=== PATIENT | male | born 1995 | race Caucasian/White ===

== ENCOUNTER 2022-05-11 12:26 | Emergency (ER) | payer MEDICAID ==
[~2022-05-11] VITALS: Ht 165.1 cm; Wt 129.7 kg
[2022-05-11 12:36] VITALS: BP_SYST 162
[2022-05-11 15:52] LABS: BASOPHILS # (AUTO) 0.1 K/uL (0.0-0.2); BASOPHILS % (AUTO) 0.9 % (0.0-2.0); EOSINOPHILS # (AUTO) 0.4 K/uL (0.0-0.4); EOSINOPHILS % (AUTO) 6.1 % (0.0-4.0); HEMATOCRIT 42.9 % (36-54); LYMPHOCYTES # (AUTO) 2.1 K/uL (1.0-5.5); LYMPHOCYTES % (AUTO) 33.3 % (20.5-51.5); MEAN CORPUSCULAR VOLUME 83 fL (79.0-98.0); MONOCYTES # (AUTO) 0.6 K/uL (0.0-1.0); MONOCYTES % (AUTO) 9.1 % (1.7-9.3); NEUTROPHILS # (AUTO) 3.2 K/uL (1.8-7.7); NEUTROPHILS % (AUTO) 50.6 % (40.0-70.0); PLATELET COUNT (AUTO) 266 K/uL (130-430); RED BLOOD CELL COUNT(AUTO) 5.19 MIL/uL (4.2-6.2); RED CELL DISTRIBUTION WIDTH 14.2 % (9.0-15.0); WHITE BLOOD COUNT (AUTO) 6.3 K/uL (4.8-10.8)
[2022-05-11 16:32] LABS: CALCIUM 9.2 mg/dL (8.4-11.0); CREATININE 0.86 mg/dL (0.55-1.30); POTASSIUM 3.9 mmol/L (3.5-5.1)
[2022-05-11 16:38] LABS: ALBUMIN 3.6 g/dL (3.4-4.8); TOTAL BILIRUBIN 0.2 mg/dL (0.0-1.0)
[2022-05-11 17:52] VITALS: BP_SYST 122
[2022-05-11 19:51] LABS: HEMOGLOBIN 14.5 g/dL (14.0-18.0); MEAN CORPUSCULAR HEMOGLOBIN 28 pg (27-31); MEAN CORPUSCULAR HGB CONC 34 % (32-36)
== END 2022-05-11 17:52 | disposition home or self-care (01) ==
LOC: SED 12:26
DX: R10.9 Unspecified abdominal pain (principal); Z79.899 Other long term (current) drug therapy
CPT/HCPCS: 36415; 80053; 83690; 85025; 99283

== ENCOUNTER 2022-05-14 23:15 | Emergency (ER) | payer MEDICAID ==
[~2022-05-14] VITALS: Ht 175.3 cm; Wt 90.7 kg
[2022-05-14 23:21] VITALS: BP_SYST 117
--- NOTE | 2022-05-14 23:26 | NUR ---
PT I AA&OX4. LUX[place]OUR[place] SPEAKING. AFEBRILE.NAD. C/O 10/15 PAIN LEFT CHEST. AMBULATORY W/ STEADY GAIT. SAFE & HAZARD FREE ENVIRONMENT PROVIDED.WILL CON'T TO MONITOR. CAME IN FOR ANXIETY, NO PMH.
[2022-05-14] MEDS ORDERED: ACETAMINOPHEN 325 MG TABLET PO ONE (23:30)
--- NOTE | 2022-05-14 23:35 | NUR ---
ER Dr.D' NUNEZ at bedside examining patient.
[2022-05-15 01:27] VITALS: BP_SYST 120
[2022-05-15] MEDS ORDERED: NAPR-686 PO (01:28)
[2022-05-15] MEDS ORDERED: CYCL10TA24 PO (01:28)
--- NOTE | 2022-05-15 01:35 | NUR ---
Patient given written and verbal discharge instructions and verbalizes understanding. ER MD discussed with patient the results and treatment provided. Patient in stable condition. ID arm band removed. Rx of FLEXERIL& NAPROXEN given. Patient educated on pain management and to follow up with PMD. Pain Scale 0-10. Opportunity for questions provided and answered. Medication side effect fact sheet provided.
== END 2022-05-15 01:35 | disposition home or self-care (01) ==
LOC: SED 23:15
DX: R07.9 Chest pain, unspecified (principal); Z79.899 Other long term (current) drug therapy
CPT/HCPCS: 36415; 71045; 84484; 93005; 99285

== ENCOUNTER 2022-06-26 09:43 | Emergency (ER) | payer MEDICAID ==
[~2022-06-26] VITALS: Ht 167.6 cm; Wt 111.1 kg
[~2022-06-26 09:43] MED LIST: CYCL10TA24 PO; NAPR-686 PO
[2022-06-26 10:00] VITALS: BP_SYST 117
--- NOTE | 2022-06-26 10:00 | NUR ---
Patient triaged and placed in waiting room. VSS and patient appears in no acute distress at this time. Accompanied by self , awaiting available bed, and MD notified of need for MSE.
--- NOTE | 2022-06-26 10:05 | NUR ---
Pt brought by self, A&Ox4, pt presents to ER with cough, congestion and sore throat x 3 days, skin pink and warm, capr refill <3.
--- NOTE | 2022-06-26 10:20 | NUR ---
Dr Johnson evaluating patient at bedside
[2022-06-26] MEDS ORDERED: PHEDM120 PO (11:07)
[2022-06-26] MEDS ORDERED: OSEL75CA PO (11:07)
[2022-06-26] MEDS ORDERED: IBUP-1969 PO (11:07)
--- NOTE | 2022-06-26 11:18 | NUR ---
Patient given written and verbal discharge instructions and verbalizes understanding. ER MD discussed with patient the results and treatment provided. Patient in stable condition. ID arm band removed. Rx of Ibuprofen, Tamiflu and Phenergan given. Patient educated on pain management and to follow up with PMD. Pain Scale 0/10. Opportunity for questions provided and answered. Medication side effect fact sheet provided.
[2022-06-26 11:19] VITALS: BP_SYST 117
== END 2022-06-26 11:18 | disposition home or self-care (01) ==
LOC: SED 09:43
DX: J11.1 Influenza due to unidentified influenza virus with other respiratory manifestations (principal); R50.9 Fever, unspecified; R05.9 Cough, unspecified; R51.9 Headache, unspecified; Z79.899 Other long term (current) drug therapy; Z20.822 Contact with and (suspected) exposure to COVID-19
CPT/HCPCS: 36415; 99283

== ENCOUNTER 2023-01-14 02:34 | Emergency (ER) | payer MEDICAID ==
[~2023-01-14] VITALS: Ht 172.7 cm; Wt 127.0 kg
[~2023-01-14 02:34] MED LIST changes: +IBUP-1969 PO; +OSEL75CA PO; +PHEDM120 PO
[2023-01-14 02:54] VITALS: BP_SYST 134
[2023-01-14] MEDS ORDERED: IBUP-1971 PO (03:13)
[2023-01-14] MEDS ORDERED: CORTEARS LEFT EAR (03:13)
[2023-01-14 03:31] VITALS: BP_SYST 134
== END 2023-01-14 03:31 | disposition home or self-care (01) ==
LOC: SED 02:34
DX: H60.92 Unspecified otitis externa, left ear (principal); H92.02 Otalgia, left ear; Z79.899 Other long term (current) drug therapy
CPT/HCPCS: 99283

== ENCOUNTER 2023-09-17 11:10 | Emergency (ER) | payer MEDICAID ==
[~2023-09-17] VITALS: Ht 177.8 cm; Wt 113.4 kg
[~2023-09-17 11:10] MED LIST changes: +CORTEARS LEFT EAR; +IBUP-1971 PO
[2023-09-17 11:17] VITALS: BP_SYST 123; PULSE 78; RESP 18; TEMP 98; O2SAT 97
[2023-09-17 11:37] LABS: BASOPHILS % (AUTO) 0.5 % (0.0-2.0); EOSINOPHILS # (AUTO) 0.4 K/uL (0.0-0.4); EOSINOPHILS % (AUTO) 7.5 % (0.0-4.0); HEMATOCRIT 41.8 % (36-54); HEMOGLOBIN 14.2 g/dL (14.0-18.0); LYMPHOCYTES # (AUTO) 1.5 K/uL (1.0-5.5); LYMPHOCYTES % (AUTO) 29.9 % (20.5-51.5); MEAN CORPUSCULAR HEMOGLOBIN 29 pg (27-31); MEAN CORPUSCULAR HGB CONC 34 % (32-36); MEAN CORPUSCULAR VOLUME 84 fL (79.0-98.0); MONOCYTES # (AUTO) 0.5 K/uL (0.0-1.0); MONOCYTES % (AUTO) 10.1 % (1.7-9.3); NEUTROPHILS # (AUTO) 2.6 K/uL (1.8-7.7); PLATELET COUNT (AUTO) 267 K/uL (130-430); RED BLOOD CELL COUNT(AUTO) 4.97 MIL/uL (4.2-6.2); RED CELL DISTRIBUTION WIDTH 13.6 % (9.0-15.0)
[2023-09-17] MEDS: METOCLOPRAMIDE HCL 10 MG/2 ML VIAL IVP ONE (12:13)
[2023-09-17] MEDS: MECLIZINE HCL 25 MG TABLET (ANITVERT) PO ONE (12:13)
[2023-09-17 12:16] LABS: ANION GAP 9 (5-15); CALCIUM 8.7 mg/dL (8.4-11.0); CARBON DIOXIDE 29 mmol/L (23-29); CHLORIDE 105 mmol/L (98-107); CREATININE 0.74 mg/dL (0.55-1.30); GFR AFRICAN AMERICAN 161 mL/min (>90); GLUCOSE 112 mg/dL (74-106); POTASSIUM 3.8 mmol/L (3.5-5.1); SODIUM SERUM 143 mmol/L (136-145); UREA NITROGEN, BLOOD 13 mg/dL (8-21)
[2023-09-17 12:24] LABS: ALANINE AMINOTRANSFERASE 44 U/L (12-78); ALBUMIN 3.4 g/dL (3.4-4.8); ASPARTATE AMINOTRANSFERASE 22 U/L (10-37); BILIRUBIN,DIRECT 0.1 mg/dL (0.0-0.3); GFR NON AFRICAN-AMERICAN 133 mL/min (>90); TOTAL BILIRUBIN 0.3 mg/dL (0.0-1.0); TOTAL PROTEIN, SERUM 7.1 g/dL (6.4-8.3)
[2023-09-17] MEDS ORDERED: MECL-261 PO (13:13)
[2023-09-17 13:35] VITALS: BP_SYST 141; PULSE 69; RESP 18; TEMP 98.1; O2SAT 99
== END 2023-09-17 13:39 | disposition home or self-care (01) ==
LOC: SED 11:10
DX: R42 Dizziness and giddiness (principal); R11.0 Nausea; Z79.899 Other long term (current) drug therapy
CPT/HCPCS: 99285; 96374; 70450; 71045; 80076; 80048; 85025; 84484; 36415; 93005; 76376; J2765; J8597

== ENCOUNTER 2023-11-24 06:28 | Emergency (ER) | payer MEDICAID, OTHER ==
[~2023-11-24] VITALS: Ht 172.7 cm; Wt 142.4 kg
[~2023-11-24 06:28] MED LIST changes: +MECL-261 PO
[2023-11-24 06:37] VITALS: BP_SYST 133; PULSE 101; RESP 20; TEMP 97.3; O2SAT 96
[2023-11-24] MEDS: ONDANSETRON 4 MG ODT TAB PO ONE (07:09)
[2023-11-24 07:10] LABS: BILIRUBIN,URINE NEGATIVE (NEGATIVE); BLOOD, URINE NEGATIVE (NEGATIVE); CLARITY/URINE CLEAR (CLEAR); COLOR,URINE YELLOW (YELLOW); GLUCOSE,URINE NEGATIVE (NEGATIVE); KETONES,URINE NEGATIVE (NEGATIVE); LEUKOCYTE ESTERASE ,URINE NEGATIVE (NEGATIVE); NITRITE, URINE NEGATIVE (NEGATIVE); PH,URINE 6.5 (5.0-8.0); PROTEIN URINE NEGATIVE (NEGATIVE)
[2023-11-24 07:31] LABS: BASOPHILS % (AUTO) 0.4 % (0.0-2.0); EOSINOPHILS # (AUTO) 0.3 K/uL (0.0-0.4); EOSINOPHILS % (AUTO) 3.6 % (0.0-4.0); HEMATOCRIT 43.7 % (36-54); HEMOGLOBIN 14.9 g/dL (14.0-18.0); LYMPHOCYTES # (AUTO) 1.1 K/uL (1.0-5.5); LYMPHOCYTES % (AUTO) 15.6 % (20.5-51.5); MEAN CORPUSCULAR HEMOGLOBIN 28 pg (27-31); MEAN CORPUSCULAR HGB CONC 34 % (32-36); MEAN CORPUSCULAR VOLUME 83 fL (79.0-98.0); MONOCYTES # (AUTO) 0.5 K/uL (0.0-1.0); MONOCYTES % (AUTO) 7.2 % (1.7-9.3); NEUTROPHILS # (AUTO) 5.3 K/uL (1.8-7.7); NEUTROPHILS % (AUTO) 73.2 % (40.0-70.0); PLATELET COUNT (AUTO) 278 K/uL (130-430); RED BLOOD CELL COUNT(AUTO) 5.24 MIL/uL (4.2-6.2); WHITE BLOOD COUNT (AUTO) 7.3 K/uL (4.8-10.8)
[2023-11-24 07:40] LABS: CALCIUM 7.7 mg/dL (8.4-11.0); CREATININE 0.87 mg/dL (0.55-1.30); POTASSIUM 3.9 mmol/L (3.5-5.1)
[2023-11-24 07:45] LABS: ALBUMIN 3.3 g/dL (3.4-4.8); BILIRUBIN,DIRECT 0.2 mg/dL (0.0-0.3); TOTAL BILIRUBIN 0.7 mg/dL (0.0-1.0); TOTAL PROTEIN, SERUM 6.9 g/dL (6.4-8.3)
[2023-11-24] MEDS ORDERED: ONDA-8 TL (07:46)
[2023-11-24] MEDS: CALCIUM CARBONATE 650 MG TABLET PO ONE (08:25)
[2023-11-24] MEDS: CALCIUM 500 MG/TAB PO ONE (08:41)
[2023-11-24 08:46] VITALS: BP_SYST 133; PULSE 98; RESP 20; TEMP 97.3; O2SAT 96
== END 2023-11-24 08:42 | disposition home or self-care (01) ==
LOC: SED 06:28
DX: R10.9 Unspecified abdominal pain (principal); R11.2 Nausea with vomiting, unspecified
CPT/HCPCS: 99283; 80076; 80048; 81001; 83690; 85025; 36415; 81003; Q0162